=== PATIENT | female | born 1995 | race Caucasian/White ===

== ENCOUNTER 2017-10-23 14:58 | Observation (INO) | payer MEDICAID ==
[~2017-10-23 14:58] MED LIST: IBUP-2070 PO; IRON-6 PO; TYL3 PO
[2017-10-23 15:41] LABS: APPEARANCE,URINE Clear (CLEAR); BILIRUBIN,URINE Negative (NEGATIVE); COLOR,URINE Yellow (YELLOW); GLUCOSE, URINE (UA) Negative (NEGATIVE); KETONES,URINE 15 mg/dL (NEGATIVE); LEUKOCYTE ESTERASE ,URINE Small (NEGATIVE); NITRATE,URINE Negative (NEGATIVE); OCCULT BLOOD,URINE Negative (NEGATIVE); PROTEIN,URINE Negative (NEGATIVE); UROBILINOGEN,URINE 0.2 mg/dL (0.2-1.0)
[2017-10-23 15:49] LABS: AMPHET/METH SCREEN,URINE NEGATIVE (NEGATIVE); BARBITURATE SCREEN, URINE NEGATIVE (NEGATIVE); BENZODIAZEPINES SCREEN,URINE NEGATIVE (NEGATIVE); CANNABINOID SCREEN,URINE POSITIVE (NEGATIVE); COCAINE SCREEN,URINE NEGATIVE (NEGATIVE); OPIATE SCREEN,URINE NEGATIVE (NEGATIVE); PHENCYCLIDINE SCREEN,URINE NEGATIVE (NEGATIVE)
[2017-10-23 15:56] LABS: BACTERIA,URINE None Seen /HPF (None Seen); RBC,URINE None Seen /HPF (0-1); WBC,URINE 0-1 /HPF (0-1)
[2017-10-23] MEDS ORDERED: CITRIC ACID/SODIUM CITRATE 30 ML UDCUP PO SCH (16:30)
[2017-10-23] MEDS ORDERED: ONDANSETRON HCL 4 MG/2 ML VIAL IVP SCH (16:30)
[2017-10-23] MEDS ORDERED: LACTATED RINGERS 1000ML 1,000 ML IV SCH (16:30)
[2017-10-23 17:48] LABS: HEMATOCRIT 32.9 % (36-48); MEAN CORPUSCULAR HEMOGLOBIN 26.2 pg (27.0-33.0); MEAN CORPUSCULAR HGB CONC 33.3 g/dL (32.0-36.0); MEAN CORPUSCULAR VOLUME 78.6 fL (79-99); PLATELET COUNT (AUTO) 286 K/uL (130-400); RED BLOOD CELL COUNT(AUTO) 4.19 MIL/uL (4.00-5.50); RED CELL DISTRIBUTION WIDTH 14.6 % (11.0-15.5); WHITE BLOOD COUNT (AUTO) 12.4 K/uL (4.8-10.8)
[2017-10-23 18:10] LABS: ALBUMIN 2.5 g/dL (3.5-5.0); BILIRUBIN,DIRECT 0.1 mg/dL (0.0-0.3); BILIRUBIN,TOTAL 0.3 mg/dL (0.2-1.0); TOTAL PROTEIN, SERUM 6.6 g/dL (6.0-8.3)
== END 2017-10-23 18:43 | disposition home or self-care (01) ==
LOC: EDH 14:58 → LDH 14:59
PROVIDERS: ADMIT Specialist; ATTEND Specialist
DX: O26.893 Other specified pregnancy related conditions, third trimester (principal); O21.2 Late vomiting of pregnancy; R10.30 Lower abdominal pain, unspecified; M54.81 Occipital neuralgia; M54.9 Dorsalgia, unspecified; Z3A.28 28 weeks gestation of pregnancy
CPT/HCPCS: 36415; 76805; 80076; 80305; 81001; 85027; 96374; 99285; G0378 ×4; J2405; J7120 ×2; 96360

== ENCOUNTER 2017-11-17 03:12 | Observation (INO) | payer MEDICAID ==
[~2017-11-17] VITALS: Ht 157.5 cm; Wt 95.7 kg
[2017-11-17 03:45] LABS: APPEARANCE,URINE Error (CLEAR); BILIRUBIN,URINE Negative (NEGATIVE); COLOR,URINE Yellow (YELLOW); GLUCOSE, URINE (UA) Negative (NEGATIVE); KETONES,URINE Negative (NEGATIVE); LEUKOCYTE ESTERASE ,URINE Trace (NEGATIVE); NITRATE,URINE Negative (NEGATIVE); OCCULT BLOOD,URINE Negative (NEGATIVE); PH,URINE 5.5 (5.0-8.0); PROTEIN,URINE Negative (NEGATIVE)
[2017-11-17 03:53] LABS: AMPHET/METH SCREEN,URINE NEGATIVE (NEGATIVE); BARBITURATE SCREEN, URINE NEGATIVE (NEGATIVE); BENZODIAZEPINES SCREEN,URINE NEGATIVE (NEGATIVE); CANNABINOID SCREEN,URINE POSITIVE (NEGATIVE); COCAINE SCREEN,URINE NEGATIVE (NEGATIVE); OPIATE SCREEN,URINE NEGATIVE (NEGATIVE); PHENCYCLIDINE SCREEN,URINE NEGATIVE (NEGATIVE)
[2017-11-17 04:06] LABS: BACTERIA,URINE None Seen /HPF (None Seen); MUCUS,URINE Moderate LPF (None Seen); RBC,URINE 0-1 /HPF (0-1); SQUAMOUS EPITHELIAL CELL,UR Few /HPF (0-2)
[2017-11-17] MEDS ORDERED: LACTATED RINGERS 1000ML IV SCH (04:30)
[2017-11-17] MEDS ORDERED: LACTATED RINGERS 1000ML 1,000 ML IV SCH ×2 (04:45→06:45)
[2017-11-17] MEDS ORDERED: ACETAMINOPHEN EXTRA STRENGTH 500 MG TABLET PO SCH (08:00)
== END 2017-11-17 10:07 | disposition home or self-care (01) ==
LOC: EDH 03:12 → LDH 03:13
PROVIDERS: ADMIT Obstetrics & Gynecology; ATTEND Obstetrics & Gynecology
DX: O60.03 Preterm labor without delivery, third trimester (principal); Z3A.31 31 weeks gestation of pregnancy; Z87.891 Personal history of nicotine dependence; O62.9 Abnormality of forces of labor, unspecified
CPT/HCPCS: 80305; 81001; 96360; 99285; G0378 ×7; J7120 ×2; 96361

== ENCOUNTER 2017-11-18 11:14 | Observation (INO) | payer MEDICAID ==
[2017-11-18 12:14] LABS: APPEARANCE,URINE Clear (CLEAR); BILIRUBIN,URINE Negative (NEGATIVE); COLOR,URINE Yellow (YELLOW); GLUCOSE, URINE (UA) Negative (NEGATIVE); KETONES,URINE 40 mg/dL (NEGATIVE); LEUKOCYTE ESTERASE ,URINE Small (NEGATIVE); NITRATE,URINE Negative (NEGATIVE); OCCULT BLOOD,URINE Negative (NEGATIVE); PROTEIN,URINE Negative (NEGATIVE)
[2017-11-18 12:22] LABS: AMPHET/METH SCREEN,URINE NEGATIVE (NEGATIVE); BARBITURATE SCREEN, URINE NEGATIVE (NEGATIVE); BENZODIAZEPINES SCREEN,URINE NEGATIVE (NEGATIVE); CANNABINOID SCREEN,URINE POSITIVE (NEGATIVE); COCAINE SCREEN,URINE NEGATIVE (NEGATIVE); OPIATE SCREEN,URINE NEGATIVE (NEGATIVE); PHENCYCLIDINE SCREEN,URINE NEGATIVE (NEGATIVE)
[2017-11-18 12:27] LABS: BACTERIA,URINE Rare /HPF (None Seen); RBC,URINE 0-1 /HPF (0-1); SQUAMOUS EPITHELIAL CELL,UR Rare /HPF (0-2); WBC,URINE 0-1 /HPF (0-1)
[2017-11-18] MEDS ORDERED: LACTATED RINGERS 1000ML 1,000 ML IV PRN (12:44)
[2017-11-18] MEDS ORDERED: CEFTRIAXONE 1GM/D5W 50ML 50 ML IV SCH (12:45)
[2017-11-18] MEDS ORDERED: CEFTRIAXONE SODIUM 1 GM IVP SCH (13:00)
[2017-11-18 13:17] LABS: HEMATOCRIT 31.3 % (36-48); MEAN CORPUSCULAR HEMOGLOBIN 24.9 pg (27.0-33.0); MEAN CORPUSCULAR HGB CONC 33.1 g/dL (32.0-36.0); MEAN CORPUSCULAR VOLUME 75.2 fL (79-99); PLATELET COUNT (AUTO) 284 K/uL (130-400); RED BLOOD CELL COUNT(AUTO) 4.17 MIL/uL (4.00-5.50); RED CELL DISTRIBUTION WIDTH 15.8 % (11.0-15.5); WHITE BLOOD COUNT (AUTO) 11.4 K/uL (4.8-10.8)
[2017-11-19 08:25] LABS: HEPATITIS Bs ANTIGEN SCREEN P Negative (Negative)
[2017-11-19 09:56] LABS: RAPID PLASMA REAGIN NONREACTIVE (NONREACTIVE)
== END 2017-11-18 15:17 | disposition home or self-care (01) ==
LOC: EDH 11:14 → LDH 11:30
PROVIDERS: ADMIT Obstetrics & Gynecology; ATTEND Obstetrics & Gynecology
DX: O26.893 Other specified pregnancy related conditions, third trimester (principal); R10.10 Upper abdominal pain, unspecified; M54.9 Dorsalgia, unspecified; R06.82 Tachypnea, not elsewhere classified; O21.2 Late vomiting of pregnancy; Z3A.32 32 weeks gestation of pregnancy
CPT/HCPCS: 36415; 80305; 81001; 85027; 86592; 86701; 86850; 86900; 86901; 87340; 87390; 96374; 99285; G0378 ×4; J0696 ×2; J7120; 96360; 96361

== ENCOUNTER 2017-12-26 20:48 | Observation (INO) | payer MEDICAID ==
[~2017-12-26] VITALS: Ht 160 cm; Wt 100.7 kg
[2017-12-26 21:25] LABS: APPEARANCE,URINE Clear (CLEAR); BILIRUBIN,URINE Negative (NEGATIVE); COLOR,URINE Yellow (YELLOW); GLUCOSE, URINE (UA) 500 mg/dL (NEGATIVE); KETONES,URINE 15 mg/dL (NEGATIVE); LEUKOCYTE ESTERASE ,URINE Small (NEGATIVE); NITRATE,URINE Negative (NEGATIVE); OCCULT BLOOD,URINE Negative (NEGATIVE); PROTEIN,URINE Trace (NEGATIVE)
[2017-12-26 21:31] LABS: AMPHET/METH SCREEN,URINE NEGATIVE (NEGATIVE); BARBITURATE SCREEN, URINE NEGATIVE (NEGATIVE); BENZODIAZEPINES SCREEN,URINE NEGATIVE (NEGATIVE); CANNABINOID SCREEN,URINE NEGATIVE (NEGATIVE); COCAINE SCREEN,URINE NEGATIVE (NEGATIVE); OPIATE SCREEN,URINE NEGATIVE (NEGATIVE); PHENCYCLIDINE SCREEN,URINE NEGATIVE (NEGATIVE)
[2017-12-26 21:32] LABS: BACTERIA,URINE Rare /HPF (None Seen); RBC,URINE None Seen /HPF (0-1)
[2017-12-26 21:33] LABS: MUCUS,URINE Few LPF (None Seen); TRANSITIONAL EPI CELLS,URINE Few /HPF (None Seen)
== END 2017-12-26 22:30 | disposition home or self-care (01) ==
LOC: EDH 20:48 → LDH 20:49
DX: O26.893 Other specified pregnancy related conditions, third trimester (principal); O62.9 Abnormality of forces of labor, unspecified; O75.82 Onset (spontaneous) of labor after 37 completed weeks of gestation but before 39 completed weeks gestation, with delivery by (planned) cesarean section; R10.30 Lower abdominal pain, unspecified; M54.5 Low back pain; Z87.891 Personal history of nicotine dependence; Z87.440 Personal history of urinary (tract) infections; Z3A.37 37 weeks gestation of pregnancy
CPT/HCPCS: 80305; 81001; 99285; G0378 ×2

== ENCOUNTER 2018-01-08 14:33 | Inpatient (IN) | payer MEDICAID ==
[2018-01-08 15:28] LABS: APPEARANCE,URINE Clear (CLEAR); BILIRUBIN,URINE Negative (NEGATIVE); COLOR,URINE Yellow (YELLOW); GLUCOSE, URINE (UA) Negative (NEGATIVE); KETONES,URINE Negative (NEGATIVE); LEUKOCYTE ESTERASE ,URINE Moderate (NEGATIVE); NITRATE,URINE Negative (NEGATIVE); OCCULT BLOOD,URINE Negative (NEGATIVE); PROTEIN,URINE Negative (NEGATIVE)
[2018-01-08 15:36] LABS: AMPHET/METH SCREEN,URINE NEGATIVE (NEGATIVE); BARBITURATE SCREEN, URINE NEGATIVE (NEGATIVE); BENZODIAZEPINES SCREEN,URINE NEGATIVE (NEGATIVE); CANNABINOID SCREEN,URINE NEGATIVE (NEGATIVE); COCAINE SCREEN,URINE NEGATIVE (NEGATIVE); OPIATE SCREEN,URINE NEGATIVE (NEGATIVE); PHENCYCLIDINE SCREEN,URINE NEGATIVE (NEGATIVE)
[2018-01-08 15:37] LABS: RBC,URINE 0-1 /HPF (0-1)
[2018-01-08 15:40] LABS: BACTERIA,URINE Rare /HPF (None Seen); SQUAMOUS EPITHELIAL CELL,UR Rare /HPF (0-2)
[2018-01-08] MEDS ORDERED: LACTATED RINGERS 1000ML 1,000 ML IV SCH (16:00)
[2018-01-08] MEDS ORDERED: CEFAZOLIN SODIUM 1 GM VIAL IVP PRN (16:00)
[2018-01-08 16:49] LABS: MEAN CORPUSCULAR HEMOGLOBIN 22.8 pg (27.0-33.0); MEAN CORPUSCULAR HGB CONC 32.7 g/dL (32.0-36.0); MEAN CORPUSCULAR VOLUME 69.9 fL (79-99); NUCLEATED RED BLOOD CELLS 0.1 % (0.0-0.19); PLATELET COUNT (AUTO) 266 K/uL (130-400); RED BLOOD CELL COUNT(AUTO) 4.29 MIL/uL (4.00-5.50); RED CELL DISTRIBUTION WIDTH 17.7 % (11.0-15.5); WHITE BLOOD COUNT (AUTO) 11.4 K/uL (4.8-10.8)
[2018-01-08] MEDS ORDERED: CALDOLOR 800MG+NS 250ML 250 ML IV ONE ×2 (17:13→22:03)
[2018-01-08] MEDS ORDERED: SENSORCAINE/DEXT/PF 0.75% 2ML AMP IJ ONE (17:41)
[2018-01-08] MEDS ORDERED: OXYTOCIN 10 UNIT/1ML 10ML VIAL ONE (18:15)
[2018-01-08] MEDS ORDERED: ONDANSETRON HCL 4 MG/2 ML VIAL ONE (18:27)
[2018-01-08] MEDS ORDERED: LIDOCAINE HCL-MPF 1% 2ML VIAL ONE (18:27)
[2018-01-08] MEDS ORDERED: PHENYLEPHRINE HCL 10 MG/ML 1ML VIAL IV ONE (18:27)
[2018-01-08] MEDS ORDERED: DEXAMETHASONE SOD PHOSPHATE 10MG/ML 1ML VIAL ONE (18:27)
[2018-01-08] MEDS ORDERED: LIDOCAINE PF 2% 5ML ABBOJECT ONE (18:27)
[2018-01-08] MEDS ORDERED: OXYTOCIN 10 USP UNITS/ML ONE ×2 (18:27→23:47)
[2018-01-08] MEDS ORDERED: OXYTOCIN-LR 20 UNITS/1000 ML 1,000 ML IV PRN (18:52)
[2018-01-08] MEDS ORDERED: DIPHENHYDRAMINE HCL 25 MG CAPSULE PO PRN (19:00)
[2018-01-08] MEDS ORDERED: ACETAMINOPHEN EXTRA STRENGTH 500 MG TABLET PO PRN (19:00)
[2018-01-08] MEDS ORDERED: DEXTROSE 5 %-0.45 % NACL 1,000 ML IV PRN (19:00)
[2018-01-08] MEDS ORDERED: HYDROCODONE/ACETAMINOPHEN 5/325 MG TAB PO PRN ×2 (19:00)
[2018-01-08] MEDS ORDERED: BISACODYL 10 MG SUPP.RECT RC PRN (19:00)
[2018-01-08] MEDS ORDERED: SODIUM CHLORIDE 0.9% 10 ML VIAL IVP PRN ×2 (19:00)
[2018-01-08] MEDS: MEASLES/MUMPS/RUBELLA VACCINE, LIVE 0.5 ML/VIAL SQ SCH (19:00)
[2018-01-08] MEDS ORDERED: IBUPROFEN 600 MG TABLET PO PRN (19:00)
[2018-01-08] MEDS: DIPH,PERTUSS(ACELL),TET VAC/PF 0.5 ML VIAL IM SCH (19:00)
[2018-01-08 22:00] VITALS: BP 120/71
[2018-01-08] MEDS: PROMETHAZINE HCL 25 MG/ML 1ML AMPULE IM PRN (22:17)
[2018-01-08] MEDS: MEPERIDINE-PF 75 MG/ML SYG IM PRN (22:18)
[2018-01-08 23:45] VITALS: BP 113/77
[2018-01-09] MEDS: PROMETHAZINE HCL 25 MG/ML 1ML AMPULE IM PRN (02:38)
[2018-01-09] MEDS: MEPERIDINE-PF 75 MG/ML SYG IM PRN (02:39)
[2018-01-09 03:30] VITALS: BP 106/71
[2018-01-09] MEDS: CALDOLOR 800MG+NS 250ML 250 ML IV SCH ×2 (06:04→11:00)
[2018-01-09 06:32] LABS: HEMATOCRIT 26.4 % (36-48); MEAN CORPUSCULAR HEMOGLOBIN 22.1 pg (27.0-33.0); MEAN CORPUSCULAR HGB CONC 31.9 g/dL (32.0-36.0); MEAN CORPUSCULAR VOLUME 69.2 fL (79-99); PLATELET COUNT (AUTO) 225 K/uL (130-400); RED BLOOD CELL COUNT(AUTO) 3.81 MIL/uL (4.00-5.50); RED CELL DISTRIBUTION WIDTH 17.7 % (11.0-15.5)
[2018-01-09 07:35] VITALS: BP 106/55
[2018-01-09] MEDS: DOCUSATE SODIUM 100 MG CAP PO SCH ×3 (09:00→20:40)
[2018-01-09] MEDS: SIMETHICONE 80 MG TAB.CHEW PO PRN ×3 (09:06→20:40)
[2018-01-09] MEDS: LIDOCAINE 5% TOPICAL PATCH TP SCH (09:06)
[2018-01-09] MEDS: ACETAMINOPHEN-CODEINE 300/30MG TAB PO PRN ×3 (09:07→20:42)
[2018-01-09 11:39] VITALS: BP 123/56
[2018-01-09] MEDS: IBUPROFEN 800 MG TAB PO SCH (14:25)
[2018-01-09 15:46] VITALS: BP 104/63
[2018-01-09] MEDS ORDERED: IBUPROFEN 800 MG TAB PO SCH (19:00)
[2018-01-09 19:55] VITALS: BP 103/62
[2018-01-10 00:16] VITALS: BP 100/62
[2018-01-10] MEDS: IBUPROFEN 800 MG TAB PO SCH ×3 (00:33→08:34)
[2018-01-10 04:10] VITALS: BP 103/61
[2018-01-10] MEDS: ACETAMINOPHEN-CODEINE 300/30MG TAB PO PRN (04:14)
[2018-01-10 07:28] VITALS: BP 95/58
[2018-01-10 08:25] LABS: HEPATITIS Bs ANTIGEN SCREEN P Negative (Negative)
[2018-01-10] MEDS: SIMETHICONE 80 MG TAB.CHEW PO PRN (08:32)
[2018-01-10] MEDS: DOCUSATE SODIUM 100 MG CAP PO SCH (08:32)
[2018-01-10] MEDS: LIDOCAINE 5% TOPICAL PATCH TP SCH (09:00)
[2018-01-10] MEDS: DIPH,PERTUSS(ACELL),TET VAC/PF 0.5 ML VIAL IM SCH (10:18)
[2018-01-10] MEDS: MEASLES/MUMPS/RUBELLA VACCINE, LIVE 0.5 ML/VIAL SQ SCH (10:19)
[2018-01-10 12:00] VITALS: BP 111/62
== END 2018-01-10 13:45 | disposition home or self-care (01) | DRG 540 ==
LOC: LDH 14:33 → OBSVTOIN 14:33 → WSH 21:50
PROVIDERS: ADMIT Obstetrics & Gynecology; ATTEND Obstetrics & Gynecology
PROC: 10D00Z1 Extraction of Products of Conception, Low, Open Approach (ICD-10-PCS; principal; 2018-01-08 17:35)
DX: O34.211 Maternal care for low transverse scar from previous cesarean delivery (principal); O99.324 Drug use complicating childbirth; E66.9 Obesity, unspecified; O69.81X0 Labor and delivery complicated by cord around neck, without compression, not applicable or unspecified; Z37.0 Single live birth; O99.214 Obesity complicating childbirth; O99.02 Anemia complicating childbirth; Z3A.39 39 weeks gestation of pregnancy; F31.9 Bipolar disorder, unspecified; O99.344 Other mental disorders complicating childbirth; F12.90 Cannabis use, unspecified, uncomplicated
CPT/HCPCS: 36415; 59510; 80305; 81001; 85027; 86592; 86850; 86900; 86901; 87340; A4344; A4450; A4606; J0690; J1100; J1741; J2001; J2175; J2370; J2405; J2550; J2590; J3490; J7120

== ENCOUNTER 2019-02-08 10:13 | Emergency (ER) | payer MEDICAID | END 2019-02-08 10:47 | disposition home or self-care (01) | LOC: EDH 10:13 | DX: M77.9 Enthesopathy, unspecified (principal); M54.5 Low back pain; Z88.4 Allergy status to anesthetic agent; Z72.0 Tobacco use ==

== ENCOUNTER 2019-03-08 19:35 | Emergency (ER) | payer MEDICAID | END 2019-03-08 20:52 | disposition home or self-care (01) | LOC: EDH 19:35 | DX: G89.29 Other chronic pain (principal); M25.532 Pain in left wrist; Z98.890 Other specified postprocedural states; Z72.0 Tobacco use; Z88.7 Allergy status to serum and vaccine | CPT/HCPCS: 99281 ==